=== PATIENT | female | born 1995 | race Caucasian/White ===

== ENCOUNTER 2017-10-23 21:41 | Emergency (ER) | payer OTHER ==
[~2017-10-23] VITALS: Ht 172.7 cm; Wt 59.0 kg
[~2017-10-23 21:41] MED LIST: CELEXA10 MG PO; CLEOCIN HCL150 MG PO; MEDROLDOSEPACK PO; NORCO 10-325 T1 EACH PO
[2017-10-23] MEDS ORDERED: ZANTAC 150MG T150 MG PO (23:43)
[2017-10-23 23:58] VITALS: BP 122/87
--- NOTE | 2017-10-24 15:59 | EKG ---
[place] [address] ELECTROCARDIOGRAM REPORT Name: STEVEN CASE Room: [facility]#: [id number] Admission: 10/23/17 Attend Phys: Discharge: 10/23/17 Date of : [birth year] Report #: [id number] THIS REPORT FOR: //name// [facility] ED Test Date: 2017-10-23 Test Time: 21:47:07 Pat Name: STEVEN TREJOTZ Department: Room: Gender: [facility] Analyst: ABIODUN Poe : 1995 Requested By: Mason Ramirez Order Number: [id number] MD: Geo Ogden Measurements Intervals [place] Rate: 97 P: 48 NM: 137 QRS: 35 QRSD: 99 T: 41 QT: 347 QTc: 441 Interpretive Statements Sinus rhythm No previous ECG available for comparison Electronically Signed On 10-24-2017 15:59:41 CDT by Geo Ogden [email or web address] <ELECTRONICALLY SIGNED> By: Geo Ogden MD, [facility] 10/24/17 1559 [id number] 46 Geo Ogden MD, FACC /EPI
== END 2017-10-23 23:59 | disposition home or self-care (01) ==
LOC: M.ERS 21:41
DX: K21.9 Gastro-esophageal reflux disease without esophagitis (principal); Z86.14 Personal history of Methicillin resistant Staphylococcus aureus infection; Z88.2 Allergy status to sulfonamides

== ENCOUNTER 2020-04-11 08:44 | Emergency (ER) | payer OTHER ==
[~2020-04-11] VITALS: Ht 172.7 cm; Wt 59.0 kg
[~2020-04-11 08:44] MED LIST changes: +ZANTAC 150MG T150 MG PO
[2020-04-11 10:28] VITALS: BP 135/85
== END 2020-04-11 10:28 | disposition home or self-care (01) ==
LOC: M.ERS 08:44
DX: R51.9 Headache, unspecified (principal); K21.9 Gastro-esophageal reflux disease without esophagitis; K58.9 Irritable bowel syndrome, unspecified; Z86.14 Personal history of Methicillin resistant Staphylococcus aureus infection; Z88.2 Allergy status to sulfonamides

== ENCOUNTER 2021-08-11 14:09 | Emergency (ER) | payer OTHER, MEDICAID ==
[~2021-08-11] VITALS: Ht 175.3 cm; Wt 68.0 kg
[2021-08-11 14:46] LABS: ABSOLUTE BASOPHILS 0.1 thou/uL (0.0-0.2); ABSOLUTE LYMPHOCYTES 2.1 thou/uL (0.8-5.3); ABSOLUTE MONOCYTES 0.8 thou/uL (0.0-1.2); ABSOLUTE NEUTROPHILS 7.3 thou/uL (1.6-8.1); BASOPHILS 0.6 %; EOSINOPHILS 0.4 %; HEMATOCRIT 33.7 % (37.0-47.0); HEMOGLOBIN 11.8 gm/dL (12.0-15.0); LYMPHOCYTES 20.1 %; MCH 30.3 pg (26.0-34.0); MCHC 34.9 g/dL (28.0-37.0); MCV 86.9 fL (80.0-100.0); MONOCYTES 7.5 %; NUCLEATED RBCS 0 /100WBC; PLATELET COUNT* 319 thou/uL (150-400); POLYS 71.4 %; RBC 3.88 mil/uL (4.20-5.00); RDW-CV 12.7 % (10.5-14.5); WBC 10.3 thou/uL (4.0-11.0)
[2021-08-11 14:49] LABS: URINE BILIRUBIN NEGATIVE (Negative); URINE BLOOD 3+ (Negative); URINE CLARITY CLEAR; URINE COLOR YELLOW; URINE GLUCOSE-RANDOM NEGATIVE (Negative); URINE KETONES NEGATIVE (Negative); URINE LEUKOCYTES-REFLEX NEGATIVE (Negative); URINE NITRITE-REFLEX NEGATIVE (Negative); URINE PROTEIN TRACE (Negative); URINE UROBILINOGEN 0.2 E.U./dl (0.2-1.0)
[2021-08-11 14:53] LABS: CALCIUM 8.8 mg/dL (8.5-10.1); CREATININE 0.6 mg/dL (0.6-1.3); POTASSIUM 3.4 mmol/L (3.5-5.1)
[2021-08-11 14:58] LABS: ALBUMIN 3.4 g/dL (3.4-5.0); TOTAL BILIRUBIN 0.4 mg/dL (<0.1-1.0)
[2021-08-11 15:06] LABS: CASTS None Seen /LPF (None Seen); CRYSTALS None Seen /LPF (None Seen); SQUAMOUS 4-10 Moderate /LPF (0-3); URINE WBC-REFLEX None Seen /HPF (0-5)
[2021-08-11 15:07] LABS: URINE RBC 3-10 Few /HPF (0-2)
[2021-08-11 17:00] VITALS: BP 123/61
== END 2021-08-11 17:00 | disposition home or self-care (01) ==
LOC: M.ERS 14:09
PROVIDERS: Student in an Organized Health Care Education/Training Program
DX: O46.8X1 Other antepartum hemorrhage, first trimester (principal); K21.9 Gastro-esophageal reflux disease without esophagitis; Z3A.14 14 weeks gestation of pregnancy; Z86.14 Personal history of Methicillin resistant Staphylococcus aureus infection; Z88.2 Allergy status to sulfonamides